=== PATIENT | male | born 2000 | race Caucasian/White ===

== ENCOUNTER 2025-01-15 09:32 | Emergency (ER) | payer OTHER, SELFPAY ==
[2025-01-15 09:53] VITALS: BP 116/58; PULSE 72; RESP 16; TEMP 36.6; O2SAT 99; BMI 23.3
[2025-01-15 10:26] LABS: Strep Grp A by PCR Rapid Positive (Negative)
[2025-01-15 10:51] LABS: Influenza A - CEPHEID Flu A NEGATIVE (NEGATIVE); Influenza B - CEPHEID Flu B NEGATIVE (NEGATIVE)
[2025-01-15 10:53] LABS: COVID-19 CEPHEID 4-PLEX PCR Negative (Negative)
--- NOTE | 2025-01-15 11:13 | ED.URI ---
HPI - URI/Sore Throat <Jacquelyn Miranda PA-C - Last Filed: 01/15/25 11:29> General Chief Complaint: Upper Respiratory Symptoms Stated Complaint: Swelling of neck, 2 days Time Seen by Provider: 01/15/25 11:12 History of Present Illness HPI Narrative: Mr. Caruso is a pleasant 24-year-old male, active [employer], with no reported past medical history who presents to the emergency department for swollen neck, sore throat, slight cough x1 day. Patient states yesterday his symptoms started. He is able to breathe speak and swallow without difficulty but he does have pain in the throat. He is noticing swelling on both sides of his anterior neck. He has never had strep throat or any issues with the tonsils in the past. Denies fevers, chills, chest pain, shortness of breath, productive cough, abdominal pain, vomiting, diarrhea or any other concerns. He has not taken any medications prior to arrival. Related Data Previous Rx's ?Medication ?Instructions ?Recorded amoxicillin 500 mg capsule 500 mg PO Q12H 10 days #20 caps 01/15/25 ibuprofen 600 mg tablet 600 mg PO Q8H PRN fever or pain 01/15/25 #20 tabs Allergies Allergy/AdvReac Type Severity Reaction Status Date / Time No Known Drug Allergies Allergy Verified 01/15/25 09:53 Review of Systems <Jacquelyn Miranda PA-C - Last Filed: 01/15/25 11:29> Review of Systems ROS Unobtainable: All systems reviewed & are unremarkable except as noted in HPI and below Exam <Jacquelyn Miranda PA-C - Last Filed: 01/15/25 11:29> Narrative Exam Narrative: GENERAL: 24 year old patient appears stated age. Well-developed patient, in no acute distress. HEAD: Atraumatic. Normocephalic. EYES: PERRL. Extraocular motions intact. No scleral icterus. No injection or drainage. ENT: Nose without bleeding, purulent drainage. Posterior oropharynx erythematous with bilateral 1+ tonsillar hypertrophy, uvula midline, scant tonsillar exudates. Oropharynx is patent. Speech is clear. Bilateral TMs are pearly theodore with clear ear canals. NECK: Trachea midline. Cervical ROM intact. Palpable tender bilateral anterior cervical lymphadenopathy. CARDIOVASCULAR: Regular rate and rhythm. RESPIRATORY: ?Nonlabored respirations. ?Speaking in clear, full sentences. ?Clear to auscultation. Breath sounds equal bilaterally. No wheezes, rales, or rhonchi. ? NEURO: AOx3. ?Clear speech. ?Moves all 4 extremities appropriately. SKIN: No rash or erythema of visible areas. Initial Vital Signs Initial Vital Signs: Vital Signs Temperature 97.8 F 01/15/25 09:53 Pulse Rate 72 01/15/25 09:53 Respiratory Rate 16 01/15/25 09:53 Blood Pressure 116/58 L 01/15/25 09:53 Pulse Oximetry 99 01/15/25 09:53 Oxygen Delivery Method Room Air 01/15/25 09:53 <Della Durham DO - Last Filed: 01/20/25 16:56> Initial Vital Signs Initial Vital Signs: Vital Signs Temperature 97.8 F 01/15/25 09:53 Pulse Rate 72 01/15/25 09:53 Respiratory Rate 16 01/15/25 09:53 Blood Pressure 116/58 L 01/15/25 09:53 Pulse Oximetry 99 01/15/25 09:53 Oxygen Delivery Method Room Air 01/15/25 09:53 Course <Jacquelyn Miranda PA-C - Last Filed: 01/15/25 11:29> Orders Ordered: ED Orders 01/15/25 10:00 Covid-19 + FLU A/B + RSV - PCR Stat Strep Grp A by PCR Rapid Stat Throat Culture Stat Vital Signs Vital signs: Vital Signs - 8 hr 01/15/25 09:53 Temperature 97.8 F Pulse Rate 72 Respiratory Rate 16 Blood Pressure 116/58 L Pulse Oximetry 99 Oxygen Delivery Method Room Air <DO Anni Flanagan Last Filed: 01/20/25 16:56> Orders Ordered: ED Orders 01/15/25 10:00 Covid-19 + FLU A/B + RSV - PCR Stat Strep Grp A by PCR Rapid Stat Throat Culture Stat Vital Signs Vital signs: Vital Signs - 8 hr 01/15/25 09:53 Temperature 97.8 F Pulse Rate 72 Respiratory Rate 16 Blood Pressure 116/58 L Pulse Oximetry 99 Oxygen Delivery Method Room Air MDM - URI/Sore Throat <Jacquelyn Miranda PA-C - Last Filed: 01/15/25 11:29> Medical Records Medical records narrative: None available for review Lab Data Labs: Lab Results 01/15/25 Range/Units 10:00 SARS-CoV-2 (PCR) Negative (Negative) Influenza A (RT-PCR) Flu a negative (NEGATIVE) Influenza B (RT-PCR) Flu b negative (NEGATIVE) RSV (PCR) Negative (Negative) Group A Strep (PCR) Positive H (Negative) MDM Narrative Medical decision making narrative: 24-year-old male, active [employer], with no reported past medical history who presents to the emergency department for swollen neck, sore throat, slight cough x1 day. Differential diagnosis includes but is not limited to strep pharyngitis, viral pharyngitis, mononucleosis, lymphadenopathy, peritonsillar abscess, etc. On exam the patient is in no acute distress, nontoxic-appearing, all vital signs within normal limits. Viral swab and strep swab obtained prior to my evaluation. On physical exam patient has bilateral palpable tender anterior chain cervical lymphadenopathy, bilateral mild tonsillar hypertrophy erythema and exudates. His uvula is midline and there is no visible abscess. No trismus, drooling or difficulty tolerating secretions. Voice is clear. Viral swab negative, rapid strep swab negative. Patient's history, physical exam and swabs are consistent with strep pharyngitis. We will treat patient with amoxicillin 500 mg b.i.d. times 10 days, ibuprofen and Tylenol as needed for pain. Also recommended warm tea with honey, avoiding acidic drinks and using new toothbrush after 24-48 hours of antibiotics. Discussed strict ER return precautions including but not limiting to worsening symptoms, difficulty swallowing, increased swelling or any other concerns. Patient verbalized understanding of all information is agreeable with the plan. He is stable for discharge home. <Della Durham, DO - Last Filed: 01/20/25 16:56> Lab Data Labs: Lab Results 01/15/25 Range/Units 10:00 SARS-CoV-2 (PCR) Negative (Negative) Influenza A (RT-PCR) Flu a negative (NEGATIVE) Influenza B (RT-PCR) Flu b negative (NEGATIVE) RSV (PCR) Negative (Negative) Group A Strep (PCR) Positive H (Negative) Discharge Plan Departure Patient Disposition: Home Clinical Impression: Strep throat Instructions: DI for Strep Throat Activity Restrictions/Additional Instructions: Dear Mr. Caruso, Thank you for coming to the emergency department. Today you tested positive for strep throat which is a bacterial infection. Please complete the full 10 day course of antibiotics. Please drink warm tea with honey to help soothe your throat, use ibuprofen and tylenol for pain, increase hydration, and start using a new toothbrush after being on the antibiotics for 24-48 hours. Please follow up with your primary care doctor. Please return to the emergency department if you develop any new or worsening symptoms, difficulty swallowing increased swelling or any other concerns. Please follow up with your primary care doctor within the next 2-3 days for ER follow-up. (If you do not have a PCP you can call [phone]. ?to schedule an appointment with an [facility] Primary Care Provider) IF YOU DEVELOP ANY NEW OR WORSENING SYMPTOMS, RETURN TO THE ER! Please read the attached instructions, they highlight more specific treatments and interventions for you at home. Thank you for letting me participate in your care, Jacquelyn Miranda PA-C Prescriptions: New amoxicillin 500 mg capsule 500 mg PO Q12H 10 Days Qty: 20 0RF ibuprofen 600 mg tablet 600 mg PO Q8H PRN (Reason: fever or pain) Qty: 20 0RF Referrals: Provider,Jacob GRAMAJO [Primary Care Provider, Family Practice] Stand Alone Forms: Patient Portal/API, Work Release Note ED Sign-out <Della Durham, - Last Filed: 01/20/25 16:56> Cosign ED Attending Wendi Attestation: I was immediately available in the department for consultation.
[2025-01-15 11:32] VITALS: BP 112/72; PULSE 72; RESP 16; TEMP 37; O2SAT 98
== END 2025-01-15 11:30 | disposition home or self-care (01) ==
PROVIDERS: Emergency Medicine; Emergency Provider Physician Assistant
DX: J02.0 Streptococcal pharyngitis (principal)
CPT/HCPCS: 87070; 87077; 87147; 87637; 87651; 99281; 99282